=== PATIENT | female | born 1940 ===

== ENCOUNTER 2016-12-26 22:39 | Emergency (ER) | payer MEDICARE, BC ==
--- NOTE | ~2016-12-26 | ER ---
PATIENT'S NAME: NAT[facility]IIA [facility] AGE: 76 Y [address] ROOM: [place] [address] LOCATION: ED ADMIT DATE: 12/26/2016 ER/Outpatient Report DISCHARGE DATE: 12/27/2016 FAMILY PHYSICIAN: Jazmyn Carrington MD ATTENDING PHYSICIAN: Bradford Pinzon Time of Admission: 2239. Time of Evaluation: 230. CHIEF COMPLAINT: Vaginal bleeding. HISTORY OF PRESENT ILLNESS: Nataliia is a 76-year-old female, who presents to the emergency room with an onset of vaginal bleeding that occurred this evening. She normally does wear a pad as she has some urinary incontinence and noticed there was some blood on her pad and also in the toilet. She denies any past history of this, denies any trauma. The patient denies any dizziness, feeling lightheaded, abdominal pain. She reports she is currently on Xarelto, has a history of atrial fibrillation in which she does follow Cardiology. The patient did not take her Xarelto this evening. The patient does have a history of UTI but has been at least a couple years. She is not the best of drinking water but denies any dysuria, urinary frequency. She does have a history of a bladder prolapse along with repair of bladder and vaginal prolapse with repair in 2008, but reports it is failing. The last time she saw the [facility] at [facility] here in [place] was 2-3 years ago. PAST MEDICAL HISTORY: 1. Nonobstructive CAD. 2. Nonischemic cardiomyopathy. 3. CHF. 4. Hypertension. 5. GERD. 6. Hyperlipidemia. 7. Atrial fibrillation, currently on anticoagulant therapy. 8. Postoperative cholecystectomy. 9. Postoperative appendectomy. 10. Postoperative partial hysterectomy. 11. Postoperative vaginal prolapse and bladder suspension repair, 2008. 12. Postoperative right ankle fracture repair. 13. History of cystocele rectocele repair. ALLERGIES: NO KNOWN MEDICAL ALLERGIES. PATIENT'S NAME: NATALIIA [facility] AGE: 76 Y [address] ROOM: [place] [address] LOCATION: [facility] ADMIT DATE: 12/26/2016 ER/Outpatient Report DISCHARGE DATE: 12/27/2016 FAMILY PHYSICIAN: Jazmyn Carrington MD ATTENDING PHYSICIAN: Bradford Pinzon CURRENT MEDICATIONS: Please note these were reviewed by myself, she does provide a list. She did hold her Xarelto this evening. SOCIAL HISTORY: The patient is , lives here in [place], [place]. She does have two kids who live in [place], [place]. The patient is not sexually active, nonsmoker, no alcohol or drug use. REVIEW OF SYSTEMS: All systems reviewed by myself and negative with the exception of those noted in the HPI. PHYSICAL EXAMINATION: VITAL SIGNS: Current weight 5 feet 5 inches, current weight 79.2 kg, temperature 98.4, pulse 70, respirations 16, blood pressure was elevated upon arrival 198/88, she is 96% on room air. GENERAL: Nataliia is alert and oriented x4, cooperative, no acute distress. SKIN: Overall is within normal limits. There is no pallor or diaphoresis noted. HEENT: Head: Normocephalic, atraumatic. Eyes; sclerae are nonicteric. Mouth and throat; oropharynx is clear. Buccal mucosa is moist. CHEST AND LUNGS: Lung sounds are clear throughout. HEART: Irregular, no murmur appreciated. ABDOMEN: Soft, nontender. Bowel sounds are active throughout. She denies any pain. GENITAL: The patient has few external hemorrhoids, non-thrombosed. There does not appear to be any evidence of bleeding from her rectum. The patient is having bleeding from her vagina. The patient has had a partial hysterectomy with no cervix. There are a few small clots, very small and some active bleeding in the vaginal vault, it is difficult to see where this is coming from. Tissue appears to be healthy, no pain with manual exam. LOWER EXTREMITIES: No peripheral edema is noted. NEUROLOGIC: No focal deficits are present. LABORATORY DATA: CBC was performed. WBC 8.9, hemoglobin is 11.8, in comparison to one year ago it was 11.9 so stable, platelets are 254. She does have a UTI, nitrite is positive, many bacteria with 5-10 wbc's, urine culture is ordered. Other labs within normal limits. No other diagnostic studies were performed at this visit. ASSESSMENT: 1. Urinary tract infection, urine culture pending. PATIENT'S NAME: NAT[facility]IIA [facility] AGE: 76 Y [address] ROOM: [place], [place] [address] LOCATION: [facility] ADMIT DATE: 12/26/2016 ER/Outpatient Report DISCHARGE DATE: 12/27/2016 FAMILY PHYSICIAN: Jazmyn Carrington MD ATTENDING PHYSICIAN: Bradford Pinzon 2. Vaginal bleeding, unknown etiology. 3. Atrial fibrillation, anticoagulated with Xarelto. PLAN: I did consult with Dr. Pinzon, did hand her off for final dismissal. She did receive Rocephin 1 g IM x1. Macrobid 100 mg 1 p.o. b.i.d. x7 days will be initiated tomorrow, drink plenty of water. She is warned about any worsening symptoms and when she needs to seek care. She is going to follow up with her primary care physician, Dr. Jazmyn Carrington this week, also likely she will be referred to the [facility] office here in [place], in which they are the ones that did the surgeries in the past. The patient's overall status is stable. The patient has no questions, report is given to Dr. Pinzon. CAL REILLY APRN FOR MD SANJU RING/modl /[id number] I have personally evauated this patient. I agree with above and patient was discharged in short order after review of visit. Bradford Pinzon MD d: 12/27/16 0315 t: 01/03/17 1116, OUTPATIENT REPORT
[2016-12-26 23:16] LABS: BILIRUBIN URINE NEGATIVE (NEGATIVE); BLOOD URINE 250 /UL (NEGATIVE); COLOR URINE YELLOW (YELLOW); GLUCOSE URINE NEGATIVE (NEGATIVE); KETONE URINE NEGATIVE (NEGATIVE); LEUKOCYTES URINE 100 /UL (NEGATIVE); NITRITE URINE POSITIVE (NEGATIVE); PH URINE 6.5 (4.0-8.0); PROTEIN URINE 30 mg/dL (NEGATIVE); SPEC GRAVITY URINE 1.015 (1.003-1.035); TURBIDITY URINE 2+ (CLEAR); UROBILINOGEN URINE 1 mg/dL (NORMAL)
[2016-12-26 23:26] LABS: BACTERIA URINE MANY (NEGATIVE); RBC URINE FULL FIELD #/HPF (NEGATIVE)
[2016-12-26 23:41] LABS: BASOPHIL # 0.1 K/uL (0.0-0.2); BASOPHIL % 0.7 %; EOSINOPHIL # 0.2 K/uL (0.0-0.5); EOSINOPHIL % 2.3 %; HEMATOCRIT 36.5 % (33.0-46.0); HEMOGLOBIN 11.8 g/dL (10.0-15.0); IMMATURE GRANULOCYTE % 0.3 %; LYMPHOCYTE # 1.6 K/uL (0.8-4.0); LYMPHOCYTE % 18.4 %; MCH 29.3 pg (27.0-34.0); MCHC 32.3 gm/dL (32.0-36.5); MCV 90.6 fl (83.0-98.0); MONOCYTE # 0.9 K/uL (0.0-1.0); MONOCYTE % 10.1 %; MPV 9.4 fl (9.4-12.4); NEUTROPHIL % 68.2 %; NRBC % 0 /100WBC (0-0.00); PLATELET COUNT 254 K/uL (150-450); RBC 4.03 M/uL (3.50-5.50); RDW-CV 13.4 % (11.9-14.6); WBC 8.9 K/uL (4.0-11.0)
[2016-12-26 23:49] LABS: INR - (THERAPEUTIC) 1.08 (0.92-1.07); PROTIME 11.4 SECONDS (9.8-11.4); PTT 31 SECONDS (25-32)
[2016-12-26 23:57] LABS: ALBUMIN 3.7 gm/dL (3.5-5.0); CALCIUM 8.8 mg/dL (8.5-10.5); CREATININE 1.3 mg/dL (0.5-1.1); TOTAL BILIRUBIN 0.6 mg/dL (0.0-1.5); TOTAL PROTEIN 7.5 g/dL (6.0-8.4)
== END 2016-12-27 00:10 | disposition disaster alternative care site (69) ==
LOC: GMED 22:39
PROVIDERS: Emergency Medicine
DX: N93.9 Abnormal uterine and vaginal bleeding, unspecified (principal); N39.0 Urinary tract infection, site not specified; I48.91 Unspecified atrial fibrillation; I11.0 Hypertensive heart disease with heart failure; I50.9 Heart failure, unspecified; E78.5 Hyperlipidemia, unspecified; K21.9 Gastro-esophageal reflux disease without esophagitis; Z79.01 Long term (current) use of anticoagulants; Z90.710 Acquired absence of both cervix and uterus
CPT/HCPCS: J0696